=== PATIENT | male | born 1990 | race Two or more races ===

== ENCOUNTER 2016-11-17 08:16 | Emergency (ER) | payer OTHER ==
--- NOTE | 2016-11-17 08:55 | ED Physician Documentation ---
PD HPI HEENT - Stated complaint Stated Complaint: RINGING IN EAR - Chief complaint Chief Complaint: Heent - History obtained from History obtained from: Patient - History of Present Illness Timing - onset: Yesterday Timing - duration: Days (1) Timing - details: Gradual onset, Still present Location: Left ear Improves: Nothing Worsens: Noise Associated symptoms: Headache. No: Fever, Congestion, Rhinorrhea, Trismus, Unable to swallow, Swollen nodes, Facial swelling, Cough Similar symptoms before: Has not had sx before Recently seen: Not recently seen - Additional information Additional information: 25-year-old male otherwise well developed ringing in his left ear beginning yesterday evening and is bad enough that he is having some hearing loss on that side and is developed a headache on that side of his head. He is not having other symptoms of otitis. He does not have cough fever or sinus congestion. He does not have pain in the ear. He denies any recent exposure to excessive noise or barotrauma. Review of Systems Constitutional: denies: Fever, Chills, Myalgias Eyes: denies: Photophobia Ears: reports: Loss of hearing, Tinnitus/ringing. denies: Ear pain, Drainage/ discharge, Foreign body Nose: denies: Rhinorrhea / runny nose, Congestion, Sinus pressure / pain Throat: denies: Sore throat Respiratory: denies: Cough Neurologic: reports: Headache. denies: Head injury, LOC PD PAST MEDICAL HISTORY - Past Medical History Past Medical History: No - Past Surgical History Past Surgical History: No - Present Medications Home Medications: Ambulatory Orders Medication Instructions Recorded Confirmed Azithromycin [Zithromax] 250 mg PO DAILY #6 tablet 11/17/16 - Allergies Allergies/Adverse Reactions: Allergies Allergy/AdvReac Type Severity Reaction Status Date / Time ibuprofen [From Motrin] Allergy Hallucinati Verified 11/17/16 08:22 ons - Social History Does the pt smoke?: No Smoking Status: Never smoker Does the pt drink ETOH?: No Does the pt have substance abuse?: No - Immunizations Immunizations are current?: Yes PD ED PE NORMAL - Vitals Vital signs reviewed: Yes (hypertensive ) - General General: No acute distress, Well developed/nourished - HEENT HEENT: Atraumatic, PERRL, EOMI, Other (There is mild inflamation in the attic on the left and not the right. There is no distortion of the landmarks. ) - Neck Neck: Supple, no meningeal sign - Cardiac Cardiac: RRR, No murmur - Respiratory Respiratory: No respiratory distress, Clear bilaterally - Derm Derm: Normal color, Warm and dry, No rash - Extremities Extremities: No deformity, No edema - Neuro Neuro: Alert and oriented X 3, No motor deficit, No sensory deficit, Normal speech - Psych Psych: Normal mood, Normal affect Results - Vitals Vitals: Vital Signs - 24 hr 11/17/16 08:20 Temperature 36.8 C Heart Rate 88 Respiratory 18 Rate Blood Pressure 156/93 H O2 Saturation 97 Oxygen O2 Source Room air PD MEDICAL DECISION MAKING - ED course Complexity details: considered differential, d/w patient ED course: 25-year-old male with acute tinnitus has developed hearing loss as well and has mild inflammation in the attic on the left. He is administered dexamethasone 10 mg and we will put him on some azithromycin. I did discusse with the patient , that if he does not have resolution with that treatment over the next several days, he will need to follow-up with ENT. Departure - Departure Disposition: 01 Home, Self Care Clinical Impression: Tinnitus of left ear Otitis media Qualifiers: Otitis media type: suppurative Laterality: left Chronicity: acute Recurrence: not specified as recurrent Spontaneous tympanic membrane rupture: without spontaneous rupture Qualified Code(s): H66.002 - Acute suppurative otitis media without spontaneous rupture of ear drum, left ear Condition: Stable Instructions: ED Otitis Media Acute Adult, Tinnitus Follow-Up: [facility] [Provider Group] Prescriptions: Azithromycin [Zithromax] 250 mg PO DAILY #6 tablet Comments: Today in the Emergency Department your blood pressure was elevated. This can happen from the stress of the visit itself, from a current illness or circumstance or from uncontrolled hypertension. If you take blood pressure medications take your usual mediations, have your blood pressure re-checked in an appropriate setting and follow up any elevation with your primary care doctor.
[2016-11-17] MEDS: DEXAMETHASONE 10 MG/ML VIAL PO STA (09:07)
[2016-11-17] MEDS ORDERED: DEXAMETHASONE 10 MG/ML VIAL ONE (09:08)
[2016-11-17] MEDS ORDERED: CHERRY SYRUP 10 ML UDC PO ONE (09:08)
[2016-11-17 09:13] VITALS: BP 123/82
== END 2016-11-17 09:19 | disposition home or self-care (01) ==
LOC: ED 08:16
DX: H93.12 Tinnitus, left ear (principal); H66.002 Acute suppurative otitis media without spontaneous rupture of ear drum, left ear
CPT/HCPCS: 99283; A9270